=== PATIENT | male | born 1995 | race Caucasian/White ===

== ENCOUNTER 2021-11-18 19:11 | Emergency (ER) | payer SELFPAY ==
[~2021-11-18] VITALS: Ht 165.1 cm; Wt 85.0 kg
[2021-11-18 19:14] VITALS: BP 156/99
[2021-11-18] MEDS ORDERED: KETOROLAC 60MG/2ML VIAL IM ONE (21:45)
== END 2021-11-18 22:05 | disposition home or self-care (01) ==
LOC: ER 19:11
DX: B34.9 Viral infection, unspecified (principal); Z98.890 Other specified postprocedural states
CPT/HCPCS: 99281